=== PATIENT | female | born 1995 | race African-American/Black ===

== ENCOUNTER 2019-04-27 17:34 | Emergency (ER) | payer SELFPAY ==
[~2019-04-27] VITALS: Ht 170.2 cm; Wt 50.0 kg
[2019-04-27 19:53] VITALS: BP 138/72
== END 2019-04-27 19:54 | disposition home or self-care (01) ==
LOC: EMS 17:38
DX: N93.8 Other specified abnormal uterine and vaginal bleeding (principal)